=== PATIENT | male | born 1990 | race Caucasian/White ===

== ENCOUNTER 2016-07-24 16:02 | Emergency (ER) | payer SELFPAY ==
[2016-07-24 16:43] VITALS: BP 149/77
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
== END 2016-07-24 18:12 | disposition left against medical advice (07) ==
LOC: UCEAST 16:02
DX: S81.802S Unspecified open wound, left lower leg, sequela (principal); X58.XXXS Exposure to other specified factors, sequela; K92.1 Melena; R31.9 Hematuria, unspecified; Z88.0 Allergy status to penicillin; F17.210 Nicotine dependence, cigarettes, uncomplicated
CPT/HCPCS: 81003; 99213; G0463